=== PATIENT | female | born 1985 | race Caucasian/White ===

== ENCOUNTER 2023-10-31 23:02 | Observation (INO) ==
[2023-10-31 23:47] LABS: Hemoglobin 6.9 g/dl (12.0-16.0); Mean Corpuscular Hemoglobin 19.4 pg (25.0-34.0); Mean Corpuscular Hgb Conc 28.8 g/dL (32.0-36.0); Mean Corpuscular Volume 67.4 fL (80.0-100.0); Mean Platelet Volume 10.1 fL (9.4-12.4); Platelet Count 306 K/uL (130-400); RDW Standard Deviation 43.5 fL (36.4-46.3); Red Blood Count 3.56 M/uL (4.20-5.40); White Blood Count 8.15 K/ul (4.8-10.8)
[2023-10-31 23:52] LABS: Albumin Globulin Ratio 1.6 (0.9-2); Albumin Level 4.4 gm/dl (3.4-5.0); Bilirubin,Total 0.2 mg/dl (0.2-1.0); Calcium 8.7 mg/dl (8.6-10.3); Creatinine Clr Calc Pharmacy 140.9 ml/min; Est GFR (African American) 136.5 ml/min; Est GFR (Non-African American) 117.8 ml/min; Globulin 2.7 gm/dl (2.5-4.0); Potassium 3.7 mmol/L (3.5-5.1); Total Protein 7.1 gm/dl (6.0-8.3)
[2023-10-31 23:58] LABS: Troponin I High Sensitivity 3.2 pg/ml (0-14)
[2023-11-01 00:01] LABS: INR 0.9 (0.9-1.1); Partial Thromboplastin Ratio 0.7; Partial Thromboplastin Time 20 Seconds (21-31)
[2023-11-01 00:20] LABS: Basophils # (auto) 0.03 K/uL (0.00-0.20); Basophils % (auto) 0.4 %; Eosinophils % (auto) 1.2 %; Immature Granulocytes # (auto) 0.03 K/uL (0.01-0.20); Immature Granulocytes % (auto) 0.4 %; Lymphocytes # (auto) 3.04 K/uL (1.20-3.40); Lymphocytes % (auto) 37.3 %; Microcytosis Present; Monocytes # (auto) 0.83 K/uL (0.11-0.59); Monocytes % (auto) 10.2 %; Neutrophils # (auto) 4.12 K/uL (1.40-6.50); Neutrophils % (auto) 50.5 %; Polychromasia 1+; Tear Drop Cells 1+
[2023-11-01] MEDS ORDERED: SODIUM CHLORIDE 0.9% 250 ML IV PRN ×2 (00:42→01:17)
[2023-11-01 00:47] LABS: Pregnancy Test, Serum Negative (Negative)
[2023-11-01] MEDS: OPTIRAY 320 125ml IV ONE (01:31)
--- NOTE | 2023-11-01 02:11 | CT Scan Report ---
Exam(s): CTA CHEST IV Amt: 115 ML OPTIRAY 320 EXAM: CT Angiography Chest With Intravenous Contrast CLINICAL HISTORY: Reason for exam: chest pain, dyspnea, recent hormone use. TECHNIQUE: Axial computed tomographic angiography images of the chest with intravenous contrast. CTDI is 27.21 mGy and DLP is 771.99 mGy-cm. Automated exposure control was utilized for the study. A dose lowering technique was utilized adhering to the principles of ALARA. MIP reconstructed images were created and reviewed. COMPARISON: No relevant prior studies available. FINDINGS: LUNGS: No focal consolidation, pleural effusion, or pneumothorax. HEART: Within normal limits. VASCULATURE: No acute pulmonary embolism. THYROID: Within normal limits. MEDIASTINUM + LYMPH NODES: There are no pathologically enlarged mediastinal, hilar, or axillary lymph nodes. SUPERIOR ABDOMEN: The included portions of the superior abdomen are within normal limits. MUSCULOSKELETAL: Within normal limits. IMPRESSION: No acute pulmonary embolism. Electronically signed by: Irwin Red MD 11/01/23 02:11 AM
--- NOTE | 2023-11-01 02:21 | Emergency Department Note ---
Impression & Plan Atypical chest pain, Anemia, Vaginal hemorrhage, Symptomatic anemia, Rectal hemorrhage ED Provider Note CHIEF COMPLAINT: Chest pain HISTORY OF PRESENT ILLNESS: This 38-year-old female patient presents to the emergency department via private vehicle for evaluation of sudden onset of chest pain which started this evening. The patient states the pain took her breath away. She states it was diffuse throughout the entire chest. The patient notes that she has not had pain like this in the past. The patient notes that she was seeing [facility] for heavy vaginal bleeding after removal of her Mirena IUD. She states she was scheduled for a D&C, but after a consultation with her [facility] at [facility] in [place], she canceled this procedure, noting that she did not need the procedure per their recommendation. The patient states she was also scheduled to have a Mirena replaced, but canceled this as well, and is planning on having the Mirena replaced with her PCP instead of ultrasound-guided with [facility]. She states that she is planning on following up with [facility] as an outpatient, she follows with them for their high risk breast cancer center. She notes that for many years, she has been experiencing rectal bleeding associated with her menstrual periods. She states that since removal of the Mirena at the end of September, she has been having heavy vaginal bleeding as well as rectal bleeding. She states this is not necessarily abnormal for her when off of the hormone therapy, but did just complete an Aygestin taper. She states that she had "horrible side effects" to this medication. She states she stopped bleeding part way through, but after only 2 to 3 days of having no vaginal or rectal bleeding, the bleeding returned. She states that this time and over the weekend, she has been experiencing rectal bleeding. She denies any vaginal bleeding. She denies any abdominal pain, but does report a generalized cramping sensation. She states she has had nausea but no vomiting. She has been feeling increased fatigue and somewhat short of breath over the past several days. The patient is not currently scheduled for Mirena replacement at this time. She states the chest pain has been intermittent. It came on suddenly while at rest. It is nonexertional in nature. No history of bleeding or clotting disorders. REVIEW OF SYSTEMS: A 10 system review of systems was performed with positives and pertinent negatives listed in the history of present illness. All other systems were reviewed and are negative. ALLERGIES: Lactose, red dye PHYSICAL EXAM: VITALS: Vitals are noted on the nurse's note and reviewed by myself. Vital signs stable. GENERAL: This is a 38-year-old female, in no acute distress, nondiaphoretic, well-developed well-nourished. SKIN: The skin was without rashes, erythema, edema, or bruising. There is no tenting of the skin. Capillary refill less than 2 seconds. HEAD: Normocephalic atraumatic. EYES: Conjunctivae without injection, sclerae without icterus. NECK: Supple without nuchal rigidity. No lymphadenopathy. No JVD. HEART: Regular rate and rhythm without murmurs gallops or rubs. LUNGS: Clear to auscultation bilaterally without wheezes, rales or rhonchi. No retractions or accessory muscle use. ABDOMEN: Positive bowel sounds x 4. Soft, nontender, without masses or organomegaly. Jaimes sign negative. No guarding or rebound tenderness. MUSCULOSKELETAL: No muscle atrophy, erythema, or edema noted. Full range of motion without joint tenderness in all extremities. No tenderness to palpation. Normal gait. Strength 5/5 throughout. NEURO: Patient was alert and oriented to person place and time. No focal neurological deficits. An order was placed for continuous desk monitor. The monitor showed a normal sinus rhythm at a ventricular rate of 86 bpm, per my interpretation. EKG was reviewed by myself and found to be normal sinus rhythm at a rate of 92 beats per minute and per my interpretation reveals no ST elevation or depression. No T wave inversion. No prior EKG available for comparison. Imaging as interpreted by myself and the radiologist revealed no evidence of PE, with radiologist interpretation as above. I agree with the radiologist's findings as based upon my independent interpretation. Chest x-ray. Findings: A chest x-ray was performed and revealed no pneumothorax, effusion, infiltrate, pulmonary edema, free air under the diaphragm, or wide mediastinum, per my interpretation. EMERGENCY DEPARTMENT COURSE: The patient was seen and evaluated as above. The patient presents for evaluation of sudden onset of chest pain which took her breath away earlier this evening. She is currently experiencing heavy vaginal and rectal bleeding associated with discontinuation of her Mirena IUD last month. She recently completed a norethindrone taper. Given the patient's complaint, the above-mentioned workup was completed. IV access was obtained, labs were drawn. Per my interpretation, there was concern for an anemia with a hemoglobin of 6.9 this is down from hemoglobin on 10/06/2023 which was 9.3. There is no leukocytosis. No thrombocytopenia. Renal, hepatic function and electrolytes without significant abnormality. hCG negative. Chest x-ray was completed and negative, per my interpretation I discussed the case and workup completed with my attending physician. We did agree on treatment plan to include blood transfusion, CT angiogram of the chest to rule out PE, as well as admission for further evaluation of the patient's symptoms. I discussed the workup and recommendation with the patient at bedside. The patient is hesitant to stay. She is concerned that this is not an academic center and generally prefers her care to be given at larger, academic centers. She is debating leaving [facility] and driving to [facility] for further management of her symptoms. She is declining blood transfusion or CTA at this time. She would like to speak with Dr. Vaughan first. The patient did speak with Dr. Vaughan. The patient ultimately did elect to stay in the hospital for further management of her acute anemia and hemorrhage. CT angiogram was completed and reviewed by myself and radiologist as noted. No PE. The patient did agree to blood transfusion. She was typed and crossed and 1 unit of blood was administered. I discussed the case with Dr. Church as well as Dr. Bravo, [facility] hospitalist physician. They did agree to see and evaluate the patient for admission. Please see hospitalist dictation regarding ongoing management care of this patient. This visit is during a period of high volume and high acuity in the emergency department. I attest that I have personally reviewed the patient medication list. I attest that I have reviewed the patient's blood pressure and it was found to be elevated. Further management by hospitalist. GCS: 15 In the evaluation and treatment of this patient the following differential diagnoses were entertained: Cardiac ischemia, aortic dissection, pulmonary embolism, pneumothorax, pneumonia, pericarditis, myocarditis, esophageal rupture, GERD, cholecystitis, pancreatitis, musculoskeletal, as well as other pathologies. The chart was completed utilizing [employer] voice recognition software. Grammatical errors, random word insertions, pronoun errors, and incomplete sentences are an occasional consequence of this system due to software limitations, ambient noise, and hardware issues. Any formal questions or concerns about the content, text, or information contained within the body of this dictation should be directly addressed to the provider for clarification. Past Med/Surg History Problem List (Updated 11/01/23 @ 03:58 by Manju Strauss PA-C) Atypical chest pain (Acute) Symptomatic anemia (Acute) Vaginal hemorrhage (Acute) Rectal hemorrhage (Acute) Heavy menses Asthma Encounter for screening and preventative care Anemia (Acute) Medical History delivery delivered X2 Hemorrhoids GDM (gestational diabetes mellitus) Surgical History (Updated 01/05/23 @ 15:47 by Orin Ely LPN) [employer] teeth extracted Family History (Updated 01/05/23 @ 16:47 by Orin Ely LPN) Mother Anxiety Heart disease Hypertension Father Anxiety Heart disease Hypertension Grandmother (Maternal) Alcohol abuse Colon cancer Ovarian cancer Aunt Breast cancer Social History Smoking Status: Never smoker Second Hand Exposure: No; Do You Dip or Chew Tobacco: No; Hx Alcohol Use: Yes Alcohol type: wine Alcohol Intake Frequency: Monthly or Less Hx Substance Use: No Preferred Language: Uzbek Communication Ability: Effective Visual Impairment: Limited Hearing Ability: Normal 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 Feels Safe at Home: Yes Childhood Exposure to Second-Hand Smoke: No Diet: lactose free and regular caffeine: Yes during the past year weight has: remained stable Dental Care, Regularly: Yes Physical Activity Frequency: 1-2 Times per Week Seatbelt Use: always Sunscreen Use: Yes Assistive Devices: Glasses Allergies Allergies Allergy/AdvReac Type Severity Reaction Status Date / Time lactose Allergy Mild Diarrhea Verified 10/06/23 10:18 Red Dye Allergy Severe throat Uncoded 10/06/23 10:18 swelling Home Meds Home Medications Medication Instructions Recorded Confirmed fluticasone propionate 50 2 spray intranasal DAILY 01/05/23 11/01/23 mcg/actuation nasal spray,suspension (Flonase Allergy Relief) Bifidobacterium infantis 10.5 mg 10 mg PO DAILY 11/01/23 11/01/23 (10 million cell) chewable tablet (Align) cholecalciferol (vitamin D3) 50 50 mcg PO DAILY 11/01/23 11/01/23 mcg (2,000 unit) capsule Previous Rx's Medication Instructions Recorded epinephrine 0.3 mg/0.3 mL 0.3 mg (0.3 mL) IM Q4H PRN 04/21/23 injection, auto-injector (Auvi-Q) anaphylaxis #2 ea fluticasone propionate 220 2 puff inhalation BID #12 grams 04/29/23 mcg/actuation HFA aerosol inhaler Results & Data (ED) Vital Signs Vital Signs - 24 hr 10/31/23 23:04 10/31/23 23:55 10/31/23 23:56 Temperature 36.6 C Temperature Source Temporal Artery Scan Pulse Rate 109 H 101 H Pulse Rate [Finger] Pulse Rate from SpO2 Sensor Pulse Rhythm Pulse Strength Respiratory Rate 20 Respiratory Effort / Characteristics Non-Labored Spontaneous Respiratory Depth Normal Respiratory Pattern Regular Blood Pressure 164/87 H 146/99 H Blood Pressure [Right Arm] Blood Pressure Mean 112 111 Blood Pressure Mean [Right Arm] Blood Pressure Position Sitting Pulse Oximetry 100 Oxygen Delivery Method Room Air Oxygen Flow Rate Sepsis Recent Fever Within 48 Hours No Sepsis New/Unexplained Change in Mental Status No Sepsis Action Taken by Nursing No Action Required 10/31/23 23:56 11/01/23 00:00 11/01/23 00:10 Temperature Temperature Source Pulse Rate 96 H 94 H 93 H Pulse Rate [Finger] Pulse Rate from SpO2 Sensor 94 H 92 H 92 H Pulse Rhythm Pulse Strength Respiratory Rate 26 H 20 8 L Respiratory Effort / Characteristics Respiratory Depth Respiratory Pattern Blood Pressure 121/85 Blood Pressure [Right Arm] Blood Pressure Mean 97 Blood Pressure Mean [Right Arm] Blood Pressure Position Pulse Oximetry 100 100 100 Oxygen Delivery Method Room Air Oxygen Flow Rate Sepsis Recent Fever Within 48 Hours Sepsis New/Unexplained Change in Mental Status Sepsis Action Taken by Nursing 11/01/23 00:20 11/01/23 00:30 11/01/23 00:40 Temperature Temperature Source Pulse Rate 92 H 99 H 98 H Pulse Rate [Finger] Pulse Rate from SpO2 Sensor 93 H 101 H 98 H Pulse Rhythm Pulse Strength Respiratory Rate 23 20 22 Respiratory Effort / Characteristics Respiratory Depth Respiratory Pattern Blood Pressure 136/92 Blood Pressure [Right Arm] Blood Pressure Mean 106 Blood Pressure Mean [Right Arm] Blood Pressure Position Pulse Oximetry 100 100 100 Oxygen Delivery Method Room Air Oxygen Flow Rate Sepsis Recent Fever Within 48 Hours Sepsis New/Unexplained Change in Mental Status Sepsis Action Taken by Nursing 11/01/23 00:42 11/01/23 00:50 11/01/23 01:00 Temperature Temperature Source Pulse Rate 142 H 106 H Pulse Rate [Finger] Pulse Rate from SpO2 Sensor 142 H 104 H Pulse Rhythm Pulse Strength Respiratory Rate 20 23 Respiratory Effort / Characteristics Respiratory Depth Respiratory Pattern Blood Pressure 127/78 Blood Pressure [Right Arm] Blood Pressure Mean 94 Blood Pressure Mean [Right Arm] Blood Pressure Position Pulse Oximetry 100 100 100 Oxygen Delivery Method Room Air Room Air Oxygen Flow Rate Sepsis Recent Fever Within 48 Hours Sepsis New/Unexplained Change in Mental Status Sepsis Action Taken by Nursing 11/01/23 01:10 11/01/23 01:20 11/01/23 01:40 Temperature Temperature Source Pulse Rate 96 H 91 H 95 H Pulse Rate [Finger] Pulse Rate from SpO2 Sensor 97 H 91 H 95 H Pulse Rhythm Pulse Strength Respiratory Rate 20 19 30 H Respiratory Effort / Characteristics Respiratory Depth Respiratory Pattern Blood Pressure Blood Pressure [Right Arm] Blood Pressure Mean Blood Pressure Mean [Right Arm] Blood Pressure Position Pulse Oximetry 100 100 100 Oxygen Delivery Method Oxygen Flow Rate Sepsis Recent Fever Within 48 Hours Sepsis New/Unexplained Change in Mental Status Sepsis Action Taken by Nursing 11/01/23 01:50 11/01/23 02:00 11/01/23 02:00 Temperature Temperature Source Pulse Rate 86 Pulse Rate [Finger] Pulse Rate from SpO2 Sensor 102 H 89 Pulse Rhythm Pulse Strength Respiratory Rate 16 Respiratory Effort / Characteristics Respiratory Depth Respiratory Pattern Blood Pressure 113/78 113/78 Blood Pressure [Right Arm] Blood Pressure Mean 89 93 Blood Pressure Mean [Right Arm] Blood Pressure Position Pulse Oximetry 100 100 Oxygen Delivery Method Room Air Oxygen Flow Rate Sepsis Recent Fever Within 48 Hours Sepsis New/Unexplained Change in Mental Status Sepsis Action Taken by Nursing 11/01/23 02:30 11/01/23 03:00 11/01/23 03:36 Temperature 36.6 C Temperature Source Temporal Artery Scan Pulse Rate 77 97 H Pulse Rate [Finger] 96 H Pulse Rate from SpO2 Sensor 77 Pulse Rhythm Regular Pulse Strength Normal Respiratory Rate 26 H 18 20 Respiratory Effort / Characteristics Non-Labored Respiratory Depth Normal Respiratory Pattern Blood Pressure 112/78 149/101 H Blood Pressure [Right Arm] 138/99 Blood Pressure Mean 89 117 Blood Pressure Mean [Right Arm] 112 Blood Pressure Position Sitting Pulse Oximetry 99 100 100 Oxygen Delivery Method Room Air Room Air Oxygen Flow Rate 0 Sepsis Recent Fever Within 48 Hours Sepsis New/Unexplained Change in Mental Status Sepsis Action Taken by Nursing Laboratory Data 10/31/23 23:20 10/31/23 23:20 Lab Results 10/31/23 11/01/23 11/01/23 Range/Units 23:20 01:37 02:33 WBC 8.15 (4.8-10.8) K/ul RBC 3.56 L (4.20-5.40) M/uL Hgb 6.9 L* (12.0-16.0) g/dl Hct 24.0 L (37.0-47.0) % MCV 67.4 L (80.0-100.0) fL MCH 19.4 L (25.0-34.0) pg MCHC 28.8 L (32.0-36.0) g/dL RDW Std Deviation 43.5 (36.4-46.3) fL RDW Coeff of David 18.0 H (11.5-14.5) % Plt Count 306 (130-400) K/uL MPV 10.1 (9.4-12.4) fL Immature Gran % (Auto) 0.4 % Neut % (Auto) 50.5 % Lymph % (Auto) 37.3 % [place] % (Auto) 10.2 % Eos % (Auto) 1.2 % Baso % (Auto) 0.4 % Neut # (Auto) 4.12 (1.40-6.50) K/uL Lymph # (Auto) 3.04 (1.20-3.40) K/uL [place] # (Auto) 0.83 H (0.11-0.59) K/uL Eos # (Auto) 0.10 (0.00-0.50) K/uL Baso # (Auto) 0.03 (0.00-0.20) K/uL Immature Gran # (Auto) 0.03 (0.01-0.20) K/uL Polychromasia 1+ Microcytosis Present Tear Drop Cells 1+ PT 10.0 (9.0-12.0) Seconds INR 0.9 (0.9-1.1) APTT 20 L (21-31) Seconds PTT Ratio 0.7 Sodium 137 (136-145) mmol/L Potassium 3.7 (3.5-5.1) mmol/L Chloride 106 (98-107) mmol/L Carbon Dioxide 23 (21-32) mmol/L Anion Gap 8 (3-11) BUN 18 (6-23) mg/dl Creatinine 0.58 L (0.6-1.2) mg/dl Est Cr Clr Drug Dosing 140.9 ml/min Est GFR ( Amer) 136.5 ml/min Est GFR (Non-Af Amer) 117.8 ml/min BUN/Creatinine Ratio 31.0 H (10-20) Glucose 114 H (70-99(Fasting)) mg/dl Calcium 8.7 (8.6-10.3) mg/dl Total Bilirubin 0.2 (0.2-1.0) mg/dl AST 15 (13-39) U/L ALT 16 (7-52) U/L Alkaline Phosphatase 55 (34-104) U/L Troponin I High Sens 3.2 (0-14) pg/ml Total Protein 7.1 (6.0-8.3) gm/dl Albumin 4.4 (3.4-5.0) gm/dl Globulin 2.7 (2.5-4.0) gm/dl Albumin/Globulin Ratio 1.6 (0.9-2) HCG, Qual Negative (Negative) Blood Type A Positive Blood Type Recheck A Positive Antibody Screen NEGATIVE Crossmatch See Detail Administered Medications Discontinued Medications Ioversol (Optiray 320 125ml) 125 ml IV ONCE ONE Stop: 11/01/23 01:31 Last Admin: 11/01/23 01:31 Dose: 115 ml Documented By: [facility] Imaging Data Radiologist's Impression: Chest CTA 11/01/23 00:42 Exam(s): CTA CHEST IV Amt: 115 ML OPTIRAY 320 EXAM: CT Angiography Chest With Intravenous Contrast CLINICAL HISTORY: Reason for exam: chest pain, dyspnea, recent hormone use. TECHNIQUE: Axial computed tomographic angiography images of the chest with intravenous contrast. CTDI is 27.21 mGy and DLP is 771.99 mGy-cm. Automated exposure control was utilized for the study. A dose lowering technique was utilized adhering to the principles of ALARA. MIP reconstructed images were created and reviewed. COMPARISON: No relevant prior studies available. FINDINGS: LUNGS: No focal consolidation, pleural effusion, or pneumothorax. HEART: Within normal limits. VASCULATURE: No acute pulmonary embolism. THYROID: Within normal limits. MEDIASTINUM + LYMPH NODES: There are no pathologically enlarged mediastinal, hilar, or axillary lymph nodes. SUPERIOR ABDOMEN: The included portions of the superior abdomen are within normal limits. MUSCULOSKELETAL: Within normal limits. IMPRESSION: No acute pulmonary embolism. Electronically signed by: Irwin Red MD 11/01/23 02:11 AM Discharge Plan Visit Data Chief Complaint: Chest Pain Stated Complaint: CHEST PAIN ED Provider: Suellen Vaughan ED Midlevel Provider: Manju Strauss Discharge Problem: Atypical chest pain, Anemia, Vaginal hemorrhage, Symptomatic anemia, Rectal hemorrhage Patient Disposition: Admitted As Inpatient Forms Stand Alone Forms: [facility] Prescriptions Prescriptions: No Action epinephrine [Auvi-Q] 0.3 mg/0.3 mL auto-injector 0.3 mg IM Q4H PRN (Reason: anaphylaxis) Qty: 2 0RF fluticasone propionate 220 mcg/actuation HFA aerosol inhaler 2 puff inhalation BID Qty: 12 0RF fluticasone propionate [Flonase Allergy Relief] 50 mcg/actuation spray,suspension 2 spray intranasal DAILY Rx Instructions: administer into each nostril cholecalciferol (vitamin D3) 50 mcg (2,000 unit) capsule 50 mcg PO DAILY Align 10.5 mg (10 million cell) Tablet,Chewable 10 mg PO DAILY Referrals Referrals: Lisette Mann DO [Primary Care Provider] -
--- NOTE | 2023-11-01 02:49 | History & Physical Report ---
"Date of Service November 01, 2023 Assessment & Plan (1) Rectal hemorrhage: (2) Vaginal hemorrhage: (3) Symptomatic anemia: (4) Heavy menses: (5) Asthma: (6) Anemia: Plan Keren is a 38F (CS x 2) w/ PMH heavy menses and asthma who presents for concern of chest tightness this past evening. Symptomatic Anemia (Hgb 6.9) - Patient presenting with chest tightening and dyspnea - EKG w/ NSR w/o ST or T wave changes - Patient with intermittent tachycardia, otherwise hemodynamically stable - 1 unit PRBC ordered in ED, 2 more units ordered on hold - Trend H&H q4h - Peripheral smear ordered Vaginal Hemorrhage | Hx of Heavy Menses - Longstanding history of heavy vaginal bleeding, s/p 2 C/s (last delivery 7 years ago) No endometriosis noted on exploration during C/s - No known personal or FH of bleeding disorders - Patient notes she has been bleeding free for 7 years w/ Mirena Scheduled for replacement w/ PCP (Dr. 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 [facility] Requesting not to see [facility] Plans to transition care to [facility] - Unable to perform Von Willebrand testing as patient has received blood Would recommend testing w/ PCP as outpatient GI Bleeding | Rectal Hemorrhage - Longstanding history of rectal bleeding, now acutely worsened over weekend Patient previously following w/ colorectal surgery, upcoming appointment in 2 weeks Prior colonoscopies negative Prior EGDs with esophagitis and gastritis - Now with epigastric pain on exam in setting of ongoing GI bleeding, concern exists for UGIB Patient notes taking Ibuprofen yesterday, hold further NSAIDS - GI consultation ordered, appreciate recommendations - IV Protonix 40 mg BID started, patient declined addition of Carafate and Pepc id - CTAP ordered given severity of bleeding and TTP on examination - Continue NPO pending GI evaluation Chronic Conditions - Asthma: no home medical management - Anxiety: no home medical management FEN: NPO Code status: Full Code DVT ppx: None, active GI/ bleeding Isolation: None Dispo:Med/Surg w/ Tele History of Present Illness Primary Care Provider: Lisette BairdmayoDO Keren zendejas is a 38F (CS x 2) w/ PMH heavy menses and asthma who presents for concern of chest tightness this past evening. She notes that she has been feeling unwell since 09/20/23 when her Mirena IUD was removed. She has a longstanding history of rectal and vaginal hemorrhaging, but has had an IUD placed for the last 7 years. Upon removal, she began to experience cramping, nausea, lightheadedness, and profound vaginal bleeding with frequent golf ball size clots. She was seen 10/06/23 and her hemoglobin level was noted to be 9.3. Transvaginal US was performed and clots within the uterus were found. D&C was recommended, but patient contacted her OB specialist at [facility] who recommended against the D&C and said the clots would self resolve over time. Patient was placed on Norethindrone taper by [facility]PER[facility], but when she completed the taper Monday, she began having abdominal cramping, nausea, and diarrhea again. Patient notes that over the weekend she experienced rectal bleeding so significant that she was having liquid bowel movements every 30 minutes. She has a history of hemorrhoids related to , but states that this bleeding is much different than past bleeding hemorrhoids. Patient notes that she previously followed with colorectal surgery when she was having rectal bleeding during , she has an appointment scheduled with them in 2 weeks. She notes her last colonoscopy and EGD were 7 years ago with her last . She had two uncomplicated deliveries and notes that her delivering physician explored her abdomen during the and was not able to find any evidence of endometriosis. Patient believes that she has rectal endometriosis, but this has not been confirmed on colonoscopy. Patient notes that she has a history of gastritis and esophagitis noted on EGD, but that she has not struggled with it recently. She did note that when her chest discomfort started this evening, she took some TUMS. She is currently not experiencing chest pain or dyspnea. She denies recent fevers or chills. She denies any recent urinary changes. Patient is scheduled for IUD placement with her PCP. Allergies Allergy/AdvReac Type Severity Reaction Status Date / Time lactose Allergy Mild Diarrhea Verified 10/06/23 10:18 Red Dye Allergy Severe throat Uncoded 10/06/23 10:18 swelling Home Medications Medication Instructions Recorded Confirmed Type fluticasone propionate 50 2 spray intranasal DAILY 01/05/23 11/01/23 History mcg/actuation nasal spray,suspension (Flonase Allergy Relief) epinephrine 0.3 mg/0.3 mL 0.3 mg (0.3 mL) IM Q4H PRN 04/21/23 11/01/23 Rx injection, auto-injector (Auvi-Q) anaphylaxis #2 ea fluticasone propionate 220 2 puff inhalation BID #12 grams 04/29/23 11/01/23 Rx mcg/actuation HFA aerosol inhaler Bifidobacterium infantis 10.5 mg 10 mg PO DAILY 11/01/23 11/01/23 History (10 million cell) chewable tablet (Align) cholecalciferol (vitamin D3) 50 50 mcg PO DAILY 11/01/23 11/01/23 History mcg (2,000 unit) capsule Past Med/Surg History Problem List (Updated 11/01/23 @ 03:58 by Manju Strauss PA-C) Atypical chest pain (Acute) Symptomatic anemia (Acute) Vaginal hemorrhage (Acute) Rectal hemorrhage (Acute) Heavy menses Asthma Encounter for screening and preventative care Anemia (Acute) Medical History delivery delivered X2 Hemorrhoids GDM (gestational diabetes mellitus) Surgical History (Updated 01/05/23 @ 15:47 by Orin Ely LPN) [place] teeth extracted Family History (Updated 01/05/23 @ 16:47 by Orin Ely LPN) Mother Anxiety Heart disease Hypertension Father Anxiety Heart disease Hypertension Grandmother (Maternal) Alcohol abuse Colon cancer Ovarian cancer Aunt Breast cancer Social History Smoking Status: Never smoker Second Hand Exposure: No; Do You Dip or Chew Tobacco: No; Hx Alcohol Use: No Hx Substance Use: No Preferred Language: Persian Communication Ability: Effective Visual Impairment: Limited Hearing Ability: Normal Real Estate Services Coordinator Required: No Beliefs That Will Affect Care: None marital status: Current Living Situation: Spouse and Family current occupational status: employed 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 Other Information That Helps Us Care for You: No Feels Safe at Home: Yes Safety Concerns: Feels Safe At This Time Childhood Exposure to Second-Hand Smoke: No Diet: lactose free and regular caffeine: Yes during the past year weight has: remained stable Dental Care, Regularly: Yes Physical Activity Frequency: 1-2 Times per Week Seatbelt Use: always Sunscreen Use: Yes Assistive Devices: Glasses Physical Exam Physical Exam: Gen: NAD, alert, interactive, facial pallor HEENT: Supple, no LAD, no thyromegaly, no JVD Resp:Non-labored, no wheezing/rhonchi/rales, CTAB CV: tachycardic, regular rhythm, normal S1/S2, no M/R/G Abd: Soft, non-distended, epigastric TTP, normoactive bowels, no masses Extr: 2+ dp bilaterally, no edema Skin: No rashes lesions or erythema Results & Data Results & Data Vital Signs (Past 12 Hours) Vital Signs Temp Pulse Resp BP Pulse Ox O2 Del Method 11/01/23 02:00 86 16 113/78 100 Room Air 11/01/23 01:50 100 11/01/23 01:40 95 H 30 H 100 11/01/23 01:20 91 H 19 100 11/01/23 01:10 96 H 20 100 11/01/23 01:00 106 H 23 127/78 100 Room Air 11/01/23 00:50 142 H 20 100 11/01/23 00:42 100 Room Air 11/01/23 00:40 98 H 22 100 11/01/23 00:30 99 H 20 136/92 100 Room Air 11/01/23 00:20 92 H 23 100 11/01/23 00:10 93 H 8 L 100 11/01/23 00:00 94 H 20 121/85 100 Room Air 10/31/23 23:56 96 H 26 H 100 10/31/23 23:56 101 H 10/31/23 23:55 146/99 H 10/31/23 23:04 36.6 C 109 H 20 164/87 H 100 Room Air Supervising Physician Co-Signing Physician Notes Attending addendum: I have physically seen this patient, have supervised the medical residents activities, and agree with the H&P unless as otherwise noted. Assessment and Plan: Symptomatic anemia hemoglobin 6.9 on admission- 1 unit PRBCs ordered from the ED H&H's every 4 hours Mildly tachycardic, but blood pressure maintained Admit to PCU Due to combination of vaginal and GI bleeding Vaginal hemorrhaging/history of heavy menses- Longstanding history of bleeding vaginally as noted Has followed with SPRAY MACHINE OPERATOR Has been controlled when on Mirena, which is scheduled to be replaced see PCP Bleeding has returned after norethindrone taper completed as outpatient Bright red blood per rectum- Has had a longstanding history of rectal bleeding as well Has had multiple colonoscopies in the past Recent use of Motrin 1 day ago Prior EGDs with esophagitis and gastritis Placing on Protonix IV twice daily as noted Ordered CT scan of abdomen and pelvis NPO until seen by gastroenterology Remaining orders and notations as noted Resident Activity Tracking Resident Involvement: Resident Care Provided Care Provided: Adult Hospital Medicine (Night)"
[2023-11-01] MEDS ORDERED: ONDANSETRON INJ 2 MG/ML 2 ML VIAL IV PRN (05:31)
--- NOTE | 2023-11-01 06:45 | CT Scan Report ---
CT OF THE ABDOMEN AND PELVIS WITHOUT CONTRAST CLINICAL HISTORY: Abdominal Pain, GI/ bleeding COMPARISON STUDY: Pelvic ultrasound October 06, 2023. TECHNIQUE: Axial images of the abdomen and pelvis were obtained without IV contrast. Images were revi ewed in the axial, sagittal, and coronal planes. Automated exposure control was utilized for the sowmya dy. A dose lowering technique was utilized adhering to the principles of ALARA. FINDINGS: No pneumatosis, free air or portal venous gas is present. Sensitivity for detection of urin rene calculi is diminished given excreted contrast from recent contrast-enhanced CT. No pelvicalyceal or ureteral filling defects are present. No lesion within the bladder is identified by CT. A 1 cm low -attenuation left renal lesion is suboptimally assessed on this unenhanced exam but favors a cyst. Th e liver, spleen, adrenal glands and pancreas are unremarkable on unenhanced exam. There is no biliary or pancreatic ductal dilatation. There is no evidence for a bowel obstruction. Caliber and wall thic kness of small and large bowel are unremarkable on unenhanced exam. There is no lymphadenopathy. Sens itivity for bowel mucosal lesions is diminished given CT technique but none are identified. There are a few colonic diverticula without evidence for acute diverticulitis. There is no lymphadenopathy. IMPRESSION: 1. No bowel obstruction. Normal appendix. No bowel wall thickening on unenhanced exam. 2. No hydronephrosis or hydroureter. ACT 112: Negative or not required by law. Electronically signed by: Abiodun Preciado M.D. 11/01/2023 6:43 AM
[2023-11-01 07:13] LABS: Hematocrit (blood only) 26.6 % (37.0-47.0); Hemoglobin 7.8 g/dl (12.0-16.0)
--- NOTE | 2023-11-01 07:38 | XRay Report ---
XR chest 1V not portable CLINICAL HISTORY: Chest pain, nonspecific COMPARISON STUDY: No previous studies for comparison. FINDINGS: Lung volumes are normal. Lungs are clear. There is no pneumothorax or pleural effusion. Car diac size is normal. Mediastinal contours are normal. There is no evidence for pulmonary edema. IMPRESSION: No acute cardiopulmonary findings. ACT 112: Negative or not required by law. Electronically signed by: Abiodun Preciado M.D. 11/01/2023 7:37 AM
--- NOTE | 2023-11-01 07:54 | Discharge Summary ---
"Date of Service November 01, 2023 Admission HPI Per Admitting Provider Keren is a 38F (CS x 2) w/ PMH heavy menses and asthma who presents for concern of chest tightness this past evening. She notes that she has been feeling unwell since 09/20/23 when her Mirena IUD was removed. She has a longstanding history of rectal and vaginal hemorrhaging, but has had an IUD placed for the last 7 years. Upon removal, she began to experience cramping, nausea, lightheadedness, and profound vaginal bleeding with frequent golf ball size clots. She was seen 10/06/23 and her hemoglobin level was noted to be 9.3. Transvaginal US was performed and clots within the uterus were found. D&C was recommended, but patient contacted her OB specialist at [facility] who recommended against the D&C and said the clots would self resolve over time. Patient was placed on Norethindrone taper by [facility], but when she completed the taper Monday, she began having abdominal cramping, nausea, and diarrhea again. Patient notes that over the weekend she experienced rectal bleeding so significant that she was having liquid bowel movements every 30 minutes. She has a history of hemorrhoids related to , but states that this bleeding is much different than past bleeding hemorrhoids. Patient notes that she previously followed with colorectal surgery when she was having rectal bleeding during , she has an appointment scheduled with them in 2 weeks. She notes her last colonoscopy and EGD were 7 years ago with her last . She had two uncomplicated deliveries and notes that her delivering physician explored her abdomen during the and was not able to find any evidence of endometriosis. Patient believes that she has rectal endometriosis, but this has not been confirmed on colonoscopy. Patient notes that she has a history of gastritis and esophagitis noted on EGD, but that she has not struggled with it recently. She did note that when her chest discomfort started this evening, she took some TUMS. She is currently not experiencing chest pain or dyspnea. She denies recent fevers or chills. She denies any recent urinary changes. Patient is scheduled for IUD placement with her PCP. Principal Diagnosis Anemia Discharge Exam Constitutional: well-appearing, no acute distress HEENT: NCAT, no conjunctival injection CV: well-perfused Resp:no increased work of breathing MSK: no gross deformities appreciated Skin: warm, dry, no rash appreciated Neuro: alert, oriented, no focal neurologic deficit appreciated Discharge Data Allergies Allergy/AdvReac Type Severity Reaction Status Date / Time lactose Allergy Mild Diarrhea Verified 10/06/23 10:18 Red Dye Allergy Severe throat Uncoded 10/06/23 10:18 swelling Consultations 11/01/23 02:39 ED Decision to Admit Stat Ordered Studies 11/01/23 00:42 CT angio chest PE protocol Stat 11/01/23 03:32 CT Abdomen and Pelvis [CT abd pelvis wo con] Stat Hospital Course (1) Rectal hemorrhage: (2) Vaginal hemorrhage: (3) Symptomatic anemia: (4) Heavy menses: (5) Asthma: (6) Anemia: Plan Keren is a 38F (CS x 2) w/ PMH heavy menses and asthma who presents for concern of chest tightness this past evening. Symptomatic Anemia (Hgb 6.9) - Patient presenting with chest tightening and dyspnea; resolved prior to d/c - EKG w/ NSR w/o ST or T wave changes - Patient with intermittent tachycardia, otherwise hemodynamically stable - received 1 unit PRBC with f/u H/H 7.8 - Peripheral smear with microcytic hypochromic anemia - pt request d/c morning of 10/31- should have f/u H/H with PCP this week Vaginal Hemorrhage | Hx of Heavy Menses - Longstanding history of heavy vaginal bleeding, s/p 2 C/s (last delivery 7 years ago) No endometriosis noted on exploration during C/s - No known personal or FH of bleeding disorders - Patient notes she has been bleeding free for 7 years w/ Mirena Scheduled for replacement w/ PCP (Dr. Andre @ [facility]) S/p Norethindrone taper as outpatient, sx returned when completed Suspect that return to progesterone therapy w/ IUD will resolve patient's symptoms No acute need for IV Estrogen or TXA - Patient w/ STRIPPER COLOR specialist at [facility] Genevieve Jeffrey Requesting not to see [facility] Plans to transition care to [facility] - Unable to perform Von Willebrand testing as patient has received blood Would recommend testing w/ PCP as outpatient - Denies acute vaginal bleeding while admitted GI Bleeding | Rectal Hemorrhage - Longstanding history of rectal bleeding, now acutely worsened over weekend Patient previously following w/ colorectal surgery, upcoming appointment in 2 weeks Prior colonoscopies negative Prior EGDs with esophagitis and gastritis - Now with epigastric pain on exam in setting of ongoing GI bleeding, concern exists for UGIB Patient notes taking Ibuprofen yesterday, hold further NSAIDS - CTAP without acute pathology - GI consulted, but left prior to being seen. Will f/u with OP GI next week Total Time Total Time Spent Total Time Spent (In Minutes): see attending attestation Discharge Plan Discharge Items Patient Disposition: Home - Self-Care Reason For Visit: SYMPTOMATIC ANEMIA, GI / BLEEDING Discharge Diagnosis: Anemia Activity: Per Instructions section Non-emergency contact: Primary Care Provider Call non-emergency contact if: you have any medication questions and your symptoms worsen Follow-up/Referrals: Lisette Mann, [Primary Care Provider] - Diet: Regular Addtl Attending Provider Instructions: You were admitted with anemia. Your blood count was low, so we gave you a unit of packed red blood cells. We would like you to follow up with your primary care provider to discuss iron supplementation and getting your Mirena reinserted. You should also follow up with your colorectal doctor to discuss the ongoing GI bleeding. If you bleeding continues and symptoms worsen you should call your PCP/come back to the ED. Pending Studies at Discharge: No Stand-Alone Forms: My [facility] [employer], Smoking Cessation Medications and DC Order Prescriptions: Continued epinephrine [Auvi-Q] 0.3 mg/0.3 mL auto-injector 0.3 mg IM Q4H PRN (Reason: anaphylaxis) Qty: 2 0RF fluticasone propionate 220 mcg/actuation HFA aerosol inhaler 2 puff inhalation BID Qty: 12 0RF fluticasone propionate [Flonase Allergy Relief] 50 mcg/actuation spray,suspension 2 spray intranasal DAILY Rx Instructions: administer into each nostril cholecalciferol (vitamin D3) 50 mcg (2,000 unit) capsule 50 mcg PO DAILY Align 10.5 mg (10 million cell) Tablet,Chewable 10 mg PO DAILY Discharge Orders: Discharge Order (Routine); Ordered 11/01/23 Ordered By: Ines Werner Admission Data Admit Date/Time: 11/01/23 03:19 Attending Provider: Imani Galan Admit Provider: Osman Bravo Primary Care Provider: Lisette Mann Other Providers: Luis Church Other Interventions: Discharge Summary Assessment (RN) Last Done: 11/01/23 07:47 Supervising Physician Co-Signing Physician Notes Attending Physician Supervision Note: I independently interviewed and examined the patient and verified the hernandes history and physical, reviewed labs and image studies and agree with findings and care plan noted above. Symptomatic anemia due to menorrhagia after removal of Mirena and hemorrhoidal bleeding -transfused 1 unit prbc. hb improved to 7.8. -no vaginal bleeding currently. -has had diarrhea leading to aggravation of hemorrhoid and leading to hemorrhoidal bleeding. -has appointment with colorectal surgery for definitive management -is in process of getting Mirena placed back again for menorrhagia through pcp. stable for discharge."
--- NOTE | 2023-11-01 08:19 | Electrocardiogram Report ---
Test Reason : Blood Pressure : / mmHG Vent. Rate : 092 BPM Atrial Rate : 092 BPM P-R Int : 122 ms QRS Dur : 072 ms QT Int : 352 ms P-R-T Axes : 046 031 036 degrees QTc Int : 435 ms Normal sinus rhythm Normal ECG No previous ECGs available Confirmed by Nathan Clemens ([id number]) on 11/01/2023 8:18:40 AM Referred By: REFERRED SELF Confirmed By:Nathan Clemens
[2023-11-01] MEDS ORDERED: PANTOprazole 40 MG in SYRINGE 0 ML IV SCH (09:00)
--- OUTSIDE RECORDS SUMMARY | 2023-11-01 15:05 | External Medical Summary | Continuity of Care Document ---
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 Role Phone Ebony Werner Yadiel Primary Care Physician [phone] [id number] Date(s): 10/20/23 - 10/20/[address] [place] [id number] [facility], [address] [place] [address] [phone] Encounter Diagnosis Bronchitis(Discharge Diagnosis) - 10/20/23 Menorrhagia(Discharge Diagnosis) - 10/20/23 Discharge Disposition: Home or Self Care Attending Physician: Thai Forbes DO, Mariana Annette Allergies, Adverse Reactions, Alerts Substance Criticality Severity Reaction Reaction Severity Status red dye throat swelling Acti ve Assessment and Plan Extracted from: Title:Office Visit Note Author:Thai Forbes DO, Mariana Annette Date:10/20/23 1.Bronchitis Acute will treat with prednisone 20mg for 5 days continue supportive care if not improved early next week may consider abx atthat time 2.Menorrhagia Advised to provide us with her specialty pharmacy and we can order device for insertion Immunizations Given and Recorded Vaccine Date Status Refusal Reason SARS-CoV-2 (COVID-19) mRNA-vacc - [id number] 03/11/23 Recorded SARS-CoV-2 mRNA (Pfizer 12+) bivalent 07/22/22 Rec orded SARS-CoV-2 (COVID-19) mRNA BNT-162b2 vax 05/06/21 Recorded SARS-CoV-2 (COVID-19) mRNA BNT-162b2 vax 07/30/20 Recorded SARS-CoV-2 (COVID-19) mRNA BNT-162b2 vax 07/09/20 Recorded tetanus/diphtheria/pertuss, acel (Tdap) 04/20/12 R ecorded influenza virus vaccine, H1N1 04/18/09 Recorded Medications EpiPen 2-Darek Start: 10/11/23 2:40:00 PM EDT Start Date: 10/11/23 Status: Ordered Flonase Start: 10/11/23 2:40:00 PM EDT Start Date: 10/11/23 Status: Ordered Flovent HFA 220 mcg/inh MDI Start: 10/12/23 1:28:00 PM EDT, 2 puff, inhaled, bid Start Date: 10/12/23 Status: Ordered norethindrone 5 mg oral tablet Start: 10/09/23 1:20:00 PM EDT, 1 tablet qid taper Start Date: 10/09/23 Status: Ordered predniSONE 20 mg oral tablet Start: 10/20/23 9:18:00 AM EDT, 1 tab, PO, Daily, Disp# 7 tab, Note to Pharmacy: No red dye, Pharmacy: [id number] Start Date: 10/20/23 Stop Date: 10/27/23 Status: Ordered Vitamin D3 50 mcg (2000 intl units) oral capsule Start: 10/09/23 2:59:00 PM EDT, 1 cap, PO, Daily, Disp# 100 cap, Refills: 3, Pharmacy: [id number] Start Date: 10/09/23 Status: Ordered Mental Status 10/20/23 Barriers to Learning one year None evide nt Mandatory Health Literacy Documentation Yes Health Literacy Communication Barriers N ever Primary Language Indian Problem List Condition Confirmation Course Effective Dates Status Health St atus Informant Anemia Confirmed Active Anxiety Confirmed Active Asthma Confirmed Active At high risk for breast cancer Confirmed Active Family history of breast cancer Confirmed Active Inconclusive mammogram due to dense breasts Confirmed Active Migraine with aura Confirmed Active History of gestational diabetes Confirmed Active Diagnosis Diagnosis Type Effective Dates Health Status Clini mahesh Service Informant Bronchitis Discharge Diagnosis 10/20/23 Non-Specified Menorrhagia Discharge Diagnosis 10/20/23 Non-Specified Procedures Procedure Date Related Diagnosis Body Site Status delivery 1 Compl eted Teeth 2 Completed 12 sections, 07/07/16 and 04/12/13 [facility]om[facility] wisdom tooth removed, in her 20's Vital Signs Most recent to oldest [Reference Range]: 1 Patient Weight 82.6 kg (10/20/23 9:05 AM) Temperature [36.5-37.9 DegC] 36.7 DegC (10/20/23 9:05 AM) Blood Pressure 114/62mmHg (10/20/23 9:05 AM) Cuff Pulse Pressure 52 mmHg (10/20/23 9:05 AM) Social History Social History Type Response Smoking Status Never smoked cigaret jane Sex Female FCM Outpt Note * Thai Forbes DO, Mariana Annette: PERFORM Event Display: FCM Outpt Note Authored Date: Chief Complaint Pt has vaso motor rhinitits. Pt has asthma and allergies. Since its been rainy. She is anemicright now. History of Present Illness Presents for sick visit sx started Monday started with allergies / vasomotorrhinitis - usually when the weather changes or with rain usually better w flonaseand flovent she took some prednisone 5mg yesterday that she had at home feels like her issues are in her chest she has a history of asthma feels SOB, sore throat pt also dealing with menorrhagia, wants mirena IUD insertion (has had one in the past). Physical Exam Vitals & Measurements T:36.7C BP:114/62 SpO2:98% WT:82.6kg WT:82.600kg(Dosing) PHQ2 Data(Data Documented on:10/20/2023 09:05) Emotional health assessment NEGATIVE General: _Alert and oriented, No acute distress HEENT: _ Normocephalic, TM serous effusion b/l, mild pharyngeal erythema, moist oral mucosa _ Cardiovascular: _Normal rate, Regular rhythm, No murmur, No gallop. Respiratory: _Lungs are clear to auscultation, Respirations are non-labored, Breath sounds are equal Psych: Mood-affect congruence. Reports no SI/HI. Speech is of normal pace and content Assessment/Plan 1.Bronchitis Acute will treat with prednisone 20mg for 5 days continue supportive care if not improved early next week may consider abx atthat time 2.Menorrhagia Advised to provide us with her specialty pharmacy and we can order device for insertion Attestation Time spent: Pre-visit planning: _4 Bulb-mf-ghyb visit: _20 Post-visit (orders/documentation/coordination of care):5 Total visit time: _29 Problem List/Past Medical History Ongoing Anemia Anxiety Asthma At high risk for breast cancer Family history of breast cancer History of gestational diabetes Inconclusive mammogram due to dense breasts Migraine with aura Procedure/Surgical History TeethCesarean delivery Medications cholecalciferol(Vitamin D3 50 mcg (2000 intl units) oral capsule), 50 mcg= 1 cap, PO, Daily, 3 refills EPINEPHrine(EpiPen 2-Darek) fluticasone(Flovent HFA 220 mcg/inh MDI), 2 puff, inhaled, bid fluticasone nasal(Flonase) norethindrone(norethindrone 5 mg oral tablet) predniSONE(predniSONE 20 mg oral tablet), 20 mg= 1 tab, PO, Daily Allergies red dyethroat swelling Social History Smoking Status Never smoked cigarettes Family History Breast cancer: Paternal Aunt. Cancer of colon: PGM. Cancer of ovary: PGM. Malignant tumor of lung: PGF and PGM. Thyroid cancer: Paternal Aunt. Health Status Family Member(s) Immunizations Vaccine Date Status SARS-CoV-2 (COVID-19) mRNA-vacc - [id number] 03/11/2023 Recorded SARS-CoV-2 mRNA (Pfizer 12+) bivalent 07/22/2022 Recorded SARS-CoV-2 (COVID-19) mRNA BNT-162b2 vax 05/06/2021 Recorded SARS-CoV-2 (COVID-19) mRNA BNT-162b2 vax 07/30/2020 Recorded SARS-CoV-2 (COVID-19) mRNA BNT-162b2 vax 07/09/2020 Recorded tetanus/diphtheria/pertuss, acel (Tdap) 04/20/2012 Recorded influenza virus vaccine, H1N1 04/18/2009 Recorded Recommendations Health Maintenance Pending(in the next year) OverDue Adult Influenza Vaccine due12/02/22and every 1year Due Adult COVID-19 Vaccination due10/20/23Unknown Frequency Adult Folic Acid Supplementation due10/20/23and every 3year Adult Social Determinants of Health Screening due10/20/23Unknown Frequency Adult Tdap/Td Vaccine due10/20/23Unknown Frequency Cervical Cancer Screening due10/20/23Unknown Frequency Hepatitis C Screening due10/20/23One-time only Lipid Screening due10/20/23Unknown Frequency Pneumococcal Vaccine Adults and Adolescents with Chronic Illness due10/20/23One-time only Satisfied(in the past 1 year) Satisfied Body Mass Index on10/09/23.Satisfied by PERLA Rudolph Donna M Electronic Signature on File Electronically Reviewed/Signed by: Lisette Forbes DO Author Signature Dt/Tm:10/20/2023 10:12 AM Department of Family Medicine [facility] Patient Care team information Care Team Personnel Name: EMPERATRIZ Werner Danielle B Position: Nurse Pract - Family Med Member Role: Primary Care Provider Address: Address: [address] [place] [address], [place] [address]
--- OUTSIDE RECORDS SUMMARY | 2023-11-01 15:05 | External Medical Summary | Continuity of Care Document ---
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 Role Phone AlphonsoEbony Yadiel Primary Care Physician [phone] [id number] Date(s): 10/24/23 - 10/24/[address] [place] [id number] [facility], [address] [place] [address] [phone] Encounter Diagnosis Body mass index [BMI] 29.0-29.9, adult(Discharge Diagnosis) - 10/24/23 Bronchitis(Discharge Diagnosis) - 10/24/23 Discharge Disposition: Home or Self Care Attending Physician: MD Decker Ravishankar E Referring Physician: MD Decker Ravishankar E Allergies, Adverse Reactions, Alerts Substance Criticality Severity Reaction Reaction Severity Status red dye throat swelling Acti ve Assessment and Plan Extracted from: Title:Office Visit Note Author:MD Jeronimo, Debby Wylie Date:10/24/23 1.Bronchitis - Escalate therapy with azithromycin 5 day dose pack - Complete prednisone course - mucinex/hydration encouraged - Red flags for return reviewed f/u PRN. Time: 30mins 5 - pre-visit chart review 20 - visit, inclusive of history, exam, and discussion of assessment/plan 5 - post-visit documentation/orders/coordination of care Immunizations Given and Recorded Vaccine Date Status Refusal Reason SARS-CoV-2 (COVID-19) mRNA-vacc - [id number] 03/11/23 Recorded SARS-CoV-2 mRNA (Pfizer 12+) bivalent 07/22/22 Rec orded SARS-CoV-2 (COVID-19) mRNA BNT-162b2 vax 05/06/21 Recorded SARS-CoV-2 (COVID-19) mRNA BNT-162b2 vax 07/30/20 Recorded SARS-CoV-2 (COVID-19) mRNA BNT-162b2 vax 07/09/20 Recorded tetanus/diphtheria/pertuss, acel (Tdap) 04/20/12 R ecorded influenza virus vaccine, H1N1 04/18/09 Recorded Medications Azithromycin 5 Day Dose Pack 250 mg oral tablet Start: 10/24/23 10:07:00 AM EDT, See Instructions, Disp# 1 each, Refills: 0, dose pack as directed on label, Note to Pharmacy: Red Dye allergy, please attempt to source non-red azithromycin, Pharmacy:[id number] Start Date: 10/24/23 Status: Ordered EpiPen 2-Darek Start: 10/11/23 2:40:00 PM EDT Start Date: 10/11/23 Status: Ordered Flonase Start: 10/11/23 2:40:00 PM EDT Start Date: 10/11/23 Status: Ordered Flovent HFA 220 mcg/inh MDI Start: 10/12/23 1:28:00 PM EDT, 2 puff, inhaled, bid Start Date: 10/12/23 Status: Ordered Mirena 52 mg intrauterine device Start: 10/25/23 3:50:00 PM EDT, 1 each, intrauterine, ONCE, Disp# 1 each, [facility] Start Date: 10/25/23 Status: Ordered norethindrone 5 mg oral tablet Start: 10/09/23 1:20:00 PM EDT, 1 tablet qid taper Start Date: 10/09/23 Status: Ordered predniSONE 20 mg oral tablet Start: 10/20/23 9:18:00 AM EDT, 1 tab, PO, Daily, Disp# 7 tab, Note to Pharmacy: No red dye, Pharmacy: [id number] Start Date: 10/20/23 Stop Date: 10/27/23 Status: Ordered Vitamin D3 50 mcg (2000 intl units) oral capsule Start: 10/09/23 2:59:00 PM EDT, 1 cap, PO, Daily, Disp# 100 cap, Refills: 3, Pharmacy: [id number] Start Date: 10/09/23 Status: Ordered Mental Status 10/24/23 Barriers to Learning one year None evide nt Mandatory Health Literacy Documentation Yes Health Literacy Communication Barriers N ever Primary Language Khmer Problem List Condition Confirmation Course Effective Dates Status Health St atus Informant Anemia Confirmed Active Anxiety Confirmed Active Asthma Confirmed Active At high risk for breast cancer Confirmed Active Family history of breast cancer Confirmed Active Inconclusive mammogram due to dense breasts Confirmed Active Migraine with aura Confirmed Active History of gestational diabetes Confirmed Active Diagnosis Diagnosis Type Effective Dates Health Status Clinical Service Informant Bronchitis Discharge Diagnosis 10/24/23 Non-Specified Body mass index [BMI] 29.0-29.9, adult Discharge Diagnosis 10/24/23 Non-Specified Procedures Procedure Date Related Diagnosis Body Site Status delivery 1 Compl eted Teeth 2 Completed 12 sections, 07/07/16 and 04/12/13 [facility] Womens 21 wisdom tooth removed, in her 20's Vital Signs Most recent to oldest [Reference Range]: 1 Height 167.5 cm (10/24/23 9:58 AM) Patient Weight 82.1 kg (10/24/23 9:58 AM) Body Mass Index 29.26 kg/m2 (10/24/23 9:58 AM) Temperature [36.5-37.9 DegC] 36.7 DegC (10/24/23 9:58 AM) Heart Rate 88 bpm (10/24/23 9:58 AM) Blood Pressure 122/80mmHg (10/24/23 9:58 AM) Cuff Pulse Pressure 42 mmHg (10/24/23 9:58 AM) Social History Social History Type Response Smoking Status Never smoked cigaret jane Sex Female FCM Outpt Note * MD Jeronimo, Blanca Wylie: PERFORM Event Display: FCM Outpt Note Authored Date: Chief Complaint Was seen on Monday was started prednisone. Chest congestion not going anywhere. Bringing up green sputum. Heart beating really fast. History of Present Illness Marcy is a 38yoF here today to f/u visit with Dr. Proctor 10/19 for same at which point she was felt to have bronchitis and treated with prednisone 20mg daily x 5 days. She was advised if not improving to return for antibiotic treatment and does so today. She feels the prednisone helped some but still bringing up a lot of sputum. She's taking sudaphedand prednisone and feels jittery on it. No fevers/chills but is dealing with menorrhagia and is quite anemic right now. Hasn't had to use rescue inhaler but is using flovent chronically for her asthma. Review of Systems 03/18pt ROS reviewed/negative except as noted in HPI. Physical Exam Vitals & Measurements T:36.7C HR:88(Monitored) BP:122/80 SpO2:98% HT:167.5cm WT:82.100kg(Dosing) WT:82.1kg BMI:29.26 PHQ2 Data(Data Documented on:10/24/2023 09:54) Emotional health assessment NEGATIVE GENERAL APPEARANCE: The patient is alert, oriented and in no acute distress. VITALS: As above. HEENT: Head is normocephalic/atraumatic. CARDIOVASCULAR: +2 radialpulses. LUNGS: Respirations even and unlabored. Coarse breath sounds throughout. Coughing sporadically. EXTREMITIES: No cyanosis, clubbing or edema. NEUROLOGICAL: Grossly non-focal exam. SKIN: Warm and dry without any rash. Assessment/Plan 1.Bronchitis - Escalate therapy with azithromycin 5 day dose pack - Complete prednisone course - mucinex/hydration encouraged - Red flags for return reviewed f/u PRN. Time: 30mins 5 - pre-visit chart review 20 - visit, inclusive of history, exam, and discussion of assessment/plan 5 - post-visit documentation/orders/coordination of care Problem List/Past Medical History Ongoing Anemia Anxiety Asthma At high risk for breast cancer Family history of breast cancer History of gestational diabetes Inconclusive mammogram due to dense breasts Migraine with aura Procedure/Surgical History TeethCesarean delivery Medications azithromycin(Azithromycin 5 Day Dose Pack 250 mg oral tablet), See Instructions cholecalciferol(Vitamin D3 50 mcg (2000 intl units) [...] Vaccine Date Status SARS-CoV-2 (COVID-19) mRNA-vacc - [id number] 03/11/2023 Recorded SARS-CoV-2 mRNA (Pfizer 12+) bivalent 07/22/2022 Recorded SARS-CoV-2 (COVID-19) mRNA BNT-162b2 vax 05/06/2021 Recorded SARS-CoV-2 (COVID-19) mRNA BNT-162b2 vax 07/30/2020 Recorded SARS-CoV-2 (COVID-19) mRNA BNT-162b2 vax 07/09/2020 Recorded tetanus/diphtheria/pertuss, acel (Tdap) 04/20/2012 Recorded influenza virus vaccine, H1N1 04/18/2009 Recorded Recommendations Health Maintenance Pending(in the next year) OverDue Adult Influenza Vaccine due12/02/22and every 1year Due Adult COVID-19 Vaccination due10/24/23Unknown Frequency Adult Folic Acid Supplementation due10/24/23and every 3year Adult Social Determinants of Health Screening due10/24/23Unknown Frequency Adult Tdap/Td Vaccine due10/24/23Unknown Frequency Cervical Cancer Screening due10/24/23Unknown Frequency Hepatitis C Screening due10/24/23One-time only Lipid Screening due10/24/23Unknown Frequency Pneumococcal Vaccine Adults and Adolescents with Chronic Illness due10/24/23One-time only Satisfied(in the past 1 year) Satisfied Body Mass Index on10/24/23.Satisfied by PERLA Hernandez Angela Electronic Signature on File Electronically Reviewed/Signed by: Blanca Decker MD Author Signature Dt/Tm:10/24/2023 10:12 AM Department of Family Medicine [facility] Patient Care team information Care Team Personnel Name: EMPERATRIZ Werner Danielle B Position: Nurse Pract - Family Med Member Role: Primary Care Provider Address: Address: [address] [place] [id number]
--- OUTSIDE RECORDS SUMMARY | 2023-11-01 15:05 | External Medical Summary | Continuity of Care Document ---
Author Name Unknown Organization [facility] Theresa Malik [address] [place] [address] [place] [id number] Care Team Providers Care Sales Vendor Name Role Phone Ebony Werner Primary Care Physician [phone] [id number] Date(s): 10/09/23 - 10/09/23 [facility] [address] [place] [address] [facility] [address] [facility], [address], Entrance [place] [address] [phone] Encounter Diagnosis At high risk for breast cancer(Discharge Diagnosis) - 10/09/23 Inconclusive mammogram due to dense breasts(Discharge Diagnosis) - 10/09/23 Family history of breast cancer(Discharge Diagnosis) - 10/09/23 Discharge Disposition: Home or Self Care Attending Physician: EMPERATRIZ Jaimes Nichole D Referring Physician: MD Marilyn, Valencia Allergies, Adverse Reactions, Alerts Substance Reaction Severity Status red dye throat swelling Active Assessment and Plan Extracted from: Title:Breast Care Office Visit Note Author:EMPERATRIZ Jaimes Nichole D Date:10/09/23 1.At high risk for breast cancer 2.Inconclusive mammogram due to dense breasts 3.Family history of breast cancer Reba seen today in the [facility] for risk assessment and evaluation. She is a38 yearold female with a personal history ofbilateral breast biopsies demi paternal aunt with breast cancer at age 36. She was previously evaluated with BRCA pro MBS assessment. Today, she was reevaluated and calculatedwith a Tyrer-Cuzick 8and found to have35%lifetimerisk of developing breast cancer. We discussedthe option of preventative medications specifically tamoxifen 5 mg a day for 3 years.She is not a candidate at this timedue to Karen 5-year riskof 1.3% We discussed lifestylemodification, and literature was provided, encouraging regular exercise5 times a week for minimum of 30 minutes each time, maintaining a healthy BMI,avoidingtobacco use,limitingconsumption of alcoholto 2-3drinks a week,avoiding processed foodsand taking vitamin I0ebboyiqpnd her likelihood of developing breast cancer. Vitamin D 2000 IUs was ordered to be taken dailyand sent to her pharmacy. We discussedthe various levels of breast densityas well carlota breast density, which is Extremely densein which casemammographyislesslikely todetectan early breast cancer. The use of supplemental imaging withMRI isrecommendedin her case. We discussed the pros and cons, particularly related the likelihoodof associatedto false positiveswith MRI.She would like to proceed despitethe possibility of false positivesandwas agreeable to annual screening mammogramsfor surveillancealong with MRI. There was no evidence of disease today on mammogram or clinical exam. She should return to the [facility] Care Clinic in 6 months for MRI and in one year for mammogram and clinical exam. Medications EpiPen 2-Darek Start: 10/11/23 14:40:00 EDT Start Date: 10/11/23 Status: Ordered Flonase Start: 10/11/23 14:40:00 EDT Start Date: 10/11/23 Status: Ordered norethindrone 5 mg oral tablet Start: 10/09/23 13:20:00 EDT, 1 tablet qid taper Start Date: 10/09/23 Status: Ordered Vitamin D3 50 mcg (2000 intl units) oral capsule Start: 10/09/23 14:59:00 EDT, 1 cap, PO, Daily, Disp# 100 cap, Refills: 3, Pharmacy: [id number] Start Date: 10/09/23 Status: Ordered Mental Status 10/09/23 Barriers to Learning one year None evide nt Mandatory Health Literacy Documentation Yes Health Literacy Communication Barriers N ever Primary Language [place] Problem List Condition Confirmation Course Effective Dates Status Health [facility] Informant At high risk for breast cancer Confirmed Active Family history of breast cancer Confirmed Active Inconclusive mammogram due to dense breasts Confirmed Active Diagnosis Diagnosis Type Effective Dates Health Status Clinical Service Informant Family history of breast cancer Discharge Diagnosis 10/09/23 At high risk for breast cancer Discharge Diagnosis 10/09/23 Inconclusive mammogram due to dense breasts Discharge Diagnosis 10/09/23 Procedures Procedure Date Related Diagnosis Body Site Status delivery 1 Compl eted Teeth 2 Completed 12 sections, 07/07/16 [address] 04/12/[address] [facility] Womens 21 wisdom tooth removed, in her 20's Vital Signs Most recent to oldest [Reference Range]: 1 Height 165 cm (10/09/23 1:27 PM) Patient Weight 83.3 kg (10/09/23 1:27 PM) Body Mass Index 30.6 kg/m2 (10/09/23 1:27 PM) Temperature [36.5-37.9 DegC] 35.9 DegC *LOW* (10/09/23 1:27 PM) Heart Rate 96 bpm (10/09/23 1:27 PM) Blood Pressure 128/78mmHg (10/09/23 1:27 PM) Cuff Pulse Pressure 50 mmHg (10/09/23 1:27 PM) Social History Social History Type Response Smoking Status Never smoked cigaret jane Sex Female Breast Center Outpt Note * EMPERATRIZ Jaimes Nichole D: PERFORM, MODIFY Event Display: Breast Center Outpt Note Authored Date: [id number] Chief Complaint new high risk History of Present Illness Reba seen today inThe [facility]o be evaluatedfor breast cancerriskdue toa family history of breast cancer.She is a [age][place]89 yearoldwho [place] [facility]. She has family history of breast cancer in her maternal auntat age 36 and was calculatedon MBSto havea lifetime risk of 20.4%. She hasbeen having surveillancewith MRI, alternating with mammogramsince 2014. Shereports accessory tissue in the rightaxilla that enlarged sign ificantlywith . She was unable to have that removed at this point due to insurance coveringthe procedure.She reportsheavy periodsthat have been causing anemiafor whichshe is takingnorethindrone on top of her IUDandcurrently being managed by gynecology. She denies changes in her breast exam including any new lumps, indentations, nipple discharge or skin discoloration today Breast Density:Extremely dense Breast Imaging: Last MRI, August 2022. Screening mammogram10/09/2023, BI-RADS 1. Breast History: 08/21/15 Left breast 10:007 CFNbiopsy at [facility], pathology showingfat necrosisand focal mild chronic inflammation. 05/21/2021 Right breast 10:[address] [facility], pathologyshowingbenign breast tissue with areas of acute and chronic inflammation and necrotic inflammatory debris consistent with history of abscess. Family History: PaternalAunt Breast Cancer at 36, from the disease age 38, BRCA negative. Paternal aunt with thyroid cancerdiagnosed in her 30s. Paternal grandmother withcolorectal cancer in her 70sand ovarian and lungcancerin her80s, . Paternal grandfather with lung cancer. She is not of Ashkenazi Lutheran descent. Risk Assessment: NCI/Gail5-yearRisk Assessment score: 1.3% NCI/GailLifetime Risk Assessmentscore: 19.6% [facility] Risk Assessment Score: 35% Genetic Testing: Met with genetics, testing not performed, in 2014. Social History: She is ,has a son and daughter. 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 She is not currently workingand is qedh-cd-brqw mom. She does not smokeor drink alcohol. She is exercising 3-4 times a week. Gynecologic History: Age at Menarche:12, G3, P2, first live at age 28. Breast-fedforapproximately 72 months. No HRT or infertility. OCP x 11 years, currently has IUD. Review of Systems see HPI Physical Exam Vitals & Measurements T:35.9C HR:96(Monitored) BP:128/78 HT:165cm WT:83.300kg(Dosing) WT:83.3kg BMI:30.6 General: Alert and oriented, well nourished, no acute distress. BreastExam:Symmetric, no discrete masses, no skin discoloration, nipple discharge or palpable axillary lymphadenopathy. Large area of accessory breast tissue and rightaxillaapproximately8 x 5 cm. Musculoskeletal: Grossly normal range of motion and strength. Neurologic: Awake, alert, and oriented. Psychiatric: Cooperative, appropriate mood and affect. Diagnostic Results (10/09/2023 11:46 EDT MG. Mammo Digital Screening Bilateral) BILATERAL MAMMOGRAM FINDINGS: The following views were obtained: bilateral CC with tomosynthesis and bilateral MLO with tomosynthesis. The breasts are extremely dense, which lowers the sensitivity of mammography. No significant masses, suspicious calcifications or other abnormalities are seen. IMPRESSION: No mammographic abnormality is seen in either breast. Routine screening mammogram at age 40 is recommended. BI-RADS Category 1: NEGATIVE RISK: Based on the information provided during exam visit, the patient's lifetime risk of developing Invasive breast carcinoma as determined by the National Cancer [place] is 18.1%. This breast cancer risk assessment tool uses medical and reproductive history and the history of breast cancer among first-degree relatives (mother, sisters, daughters) to estimate lifetime breast cancer risk. This tool does not incorporate other known risks for breast cancer (prior history of LCIS; known mutations for breast cancer; family risk factors beyond first degree relatives; prior chest wall radiation; breast density etc). WORKSTATION ID: [id number] Signature Line Final Dictated by:DO Perez Alison L Dictated DT/TM:10/09/2023 11:59 Signed by:DO Perez Alison L Signed (Electronic Signature):10/09/2023 11:59 [1] Assessment/Plan 1.At high risk for breast cancer 2.Inconclusive mammogram due to dense breasts 3.Family history of breast cancer Reba seen today in the [facility] Breast Cancer Clinic for risk assessment and evaluation. She is a38 yearold female with a personal history ofbilateral breast biopsies demi paternal aunt with breast cancer at age 36. She was previously evaluated with BRCA pro MBS assessment.Today, she was reevaluated and calculatedwith a Tyrer-Cuzick 8and found to have35%lifetimerisk of developing breast cancer. We discussedthe option of preventative medications specifically tamoxifen 5 mg a day for 3 years.She is not a candidate at this timedue to Karen 5- year riskof 1.3% We discussed lifestylemodification, and literature was provided, encouraging regular exercise5 times a week for minimum of 30 minutes each time, maintaining a healthy BMI,avoidingtobacco use,limitingconsumption of alcoholto 2-3drinks a week,avoiding processed foodsand taking vitamin U1rdrpuzzksv her likelihood of developing breast cancer. Vitamin D 2000 IUs was ordered to be taken dailyand sent to her pharmacy. We discussedthe various levels of breast densityas well carlota breast density, which isExtremely densein which casemammographyislesslikely todetectan early breast cancer. The use of supplemental imaging withMRI isrecommendedin her case. We discussed the pros and cons, particularly related the likelihoodof associatedto false positiveswith MRI.She would like to proceed despitethe possibility of false positivesandwas agreeable to annual screening mammogramsfor surveillancealong with MRI. There was no evidence of disease today on mammogram or clinical exam. She should return to the [facility] Care Clinic in 6 months for MRI and in one year for mammogram and clinical exam. Problem List/Past Medical History Ongoing At high risk for breast cancer Family history of breast cancer Inconclusive mammogram due to dense breasts Procedure/Surgical History TeethCesarean delivery Medications norethindrone(norethindrone 5 mg oral tablet) Allergies red dyethroat swelling Social History Smoking Status Never smoked cigarettes Family History Breast cancer: Paternal Aunt. Cancer of colon: PGM. Cancer of ovary: PGM. Malignant tumor of lung: PGF and PGM. Thyroid cancer: Paternal Aunt. Health Status Family Member(s) Recommendations Health Maintenance Pending(in the next year) OverDue Adult Influenza Vaccine due12/02/22and every 1year Due Adult Folic Acid Supplementation due10/09/23and every 3year Satisfied(in the past 1 year) There are no satisfied recommendations within the defined date range [1]MG. Mammo Digital Screening Bilateral; DO Perez Alison L 10/09/2023 11:46 EDT Electronic Signature on File Electronically Reviewed/Signed by: EMPERATRIZ Mendoza Author Signature Dt/Tm:10/09/2023 02:57 PM Division of Oncology Surgery [facility] Patient Care team information Care Team Personnel Name: EMPERATRIZ Werner Danielle B Position: Nurse Pract - Family Med Member Role: Primary Care Provider Address: Address: [address] [place] [address], [place] [address] [place]
--- OUTSIDE RECORDS SUMMARY | 2023-11-01 15:05 | External Medical Summary | Continuity of Care Document ---
Author Name Unknown Organization [facility] [address] [place] [address] [place] [id number] Care Team Providers Care Risk Consultant Name Role Phone Ebony Werner Primary Care Physician [phone] [id number] Date[facility]s): 10/09/23 - 10/09/23 [facility] [address] [place] [address] [facility] [address], [address], Entrance [place] [address] [phone] Discharge Disposition: Home or Self Care Attending Physician: EMPERATRIZ Jaimes Nichole D Referring Physician: EMPERATRIZ Jaimes Nichole D Allergies, Adverse Reactions, Alerts Substance Reaction Severity Status red dye throat swelling Active Medications EpiPen 2-Darek Start: 10/11/23 14:40:00 EDT Start Date: 10/11/23 Status: Ordered Flonase Start: 10/11/23 14:40:00 EDT Start Date: 10/11/23 Status: Ordered norethindrone 5 mg oral tablet Start: 10/09/23 13:20:00 EDT, 1 tablet qid taper Start Date: 10/09/23 Status: Ordered Vitamin D3 50 mcg (2000 intl units) oral capsule Start: 10/09/23 14:59:00 EDT, 1 cap, PO, Daily, Disp# 100 cap, Refills: 3, Pharmacy: [id number] Start Date: 10/09/23 Status: Ordered Problem List Condition Confirmation Course Effective Dates Status Health [facility] Informant At high risk for breast cancer Confirmed Active Family history of breast cancer Confirmed Active Inconclusive mammogram due to dense breasts Confirmed Active Procedures Procedure Date Related Diagnosis Body Site Status delivery 1 Compl eted Teeth 2 Completed 12 sections, 07/07/16 and 04/12/[address] [facility] Womens 21 wisdom tooth removed, in her 20's Results Radiology Reports * Exam Date Time Procedure Performing Provider Status 10/09/23 11:46 AM MG. Mammo Digital Screening Bilateral Amelia Garza; Modified Notes: (MG. Mammo Digital Screening Bilateral) Reason For Exam: Family history of malignant neoplasm of breast Report Bilateral Screening Mammogram HISTORY: Patient is 38 years old and is seen for 3D screening, asymptomatic. Patient history: The patient has no personal history of breast cancer. Right needle biopsy in 2022 - benign and left needle biopsy in 2014 - benign. Family history: paternal aunt, breast cancer COMPARISON: The present examination has been compared to prior imaging studies performed at [facility] on 05/10/2021,05/21/2021 and 08/30/2022. BILATERAL MAMMOGRAM FINDINGS: The following views were [...] carcinoma as determined by the National Cancer [place] is 18.1%. This breast cancer risk assessment [...] wall radiation; breast density etc). WORKSTATION ID: [id number] Final Dictated by:DO Perez Alison L Dictated DT/TM:10/09/2023 11:59 Signed by:DO Perez Alison L Signed (Electronic Signature):10/09/2023 11:59 Addendum ADDENDED REPORT 10/09/2023 Addendum: Administrative addendum BI-RADS Category 1: NEGATIVE ORIGINAL REPORT Bilateral Screening Mammogram HISTORY: Patient is 38 years old and is seen for 3D screening, asymptomatic. Patient history: The patient has no personal history of breast cancer. Right needle biopsy in 2022 - benign and left needle biopsy in 2014 - benign. Family history: paternal aunt, breast cancer COMPARISON: The present examination has been compared to prior imaging studies performed at [facility] on 05/10/2021,05/21/2021 and 08/30/2022. BILATERAL MAMMOGRAM FINDINGS: The following views were [...] carcinoma as determined by the National Cancer [place] is 18.1%. This breast cancer risk assessment [...] wall radiation; breast density etc). WORKSTATION ID: [id number] Radiologist for Original Report: Janeth Perez Date \T\ Time Originally Signed: 10/09/2023 at 11:54:37 AM Final Dictated by:DO Perez Alison L Dictated DT/TM:10/09/2023 4:43 Signed by:DO Perez Alison L Signed (Electronic Signature):10/09/2023 4:43 p Social History Social History Type Response Smoking Status Never smoked cigaret jane Sex Female Breast Care H&P * Services, CPDI: PERFORM Event Display: Breast Care H&P Authored Date: [id number] Patient Care team information Care Team Personnel Name: EMPERATRIZ Werner Danielle B Position: Nurse Pract - Family Med Member Role: Primary Care Provider Address: Address: [address] [place] [id number]
--- OUTSIDE RECORDS SUMMARY | 2023-11-01 15:05 | External Medical Summary | Continuity of Care Document ---
Author Name Unknown Organization [address] Address [address] [place], [place] [id number] Care Team Providers Care Radio Time Salesperson Name Role Phone Ebony Werner Primary Care Physician [phone] Encounter [facility] [id number] Date(s): 10/11/23 - 10/11/[address] [address] [phone] Encounter Diagnosis Hemorrhoids(Discharge Diagnosis) - 10/11/23 Establishing care with new doctor, encounter for(Discharge Diagnosis) - 10/12/23 Discharge Disposition: Home or Self Care Attending Physician: EMPERATRIZ Werner Danielle B Allergies, Adverse Reactions, Alerts Substance Reaction Severity Status red dye throat swelling Active Assessment and Plan Extracted from: Title:Office Visit Note Author:EMPERATRIZ Werner Dan ielle B Date:10/11/23 1.Establishing care with n doctor, encounter for Patient is a 38-year-old female with past medical history ofinternal and external hemorrhoids, iron deficiency anemia, anxiety, asthma, gestational diabetes, migraine with aura. At high risk for breast cancer due to family history of breast cancer. Patient follows with [facility] in [place]. Most recent mammogram was 2023. -Last Pap smear was 2022with nohistory of abnormal Pap smear. -Last tetanus shot was 2017 per new patient paperwork. Will try to obtain vaccine records. -Patient wears glasses and follows regularly witheye doctorand dentist. -Patient is a never smoker and no illicit drugs. -Patient is due for lipid, hepatitis C, diabetic screening, but with current bleeding issues, will waittill after D&Cfor labs. 2.Hemorrhoids Patient with internal and externalbleeding hemorrhoids. States she felt like they were under controluntil most recentexacerbation that started 1 to 2 weeks ago. Patient previously had flex sig that showed hemorrhoids. [facility] recommendedthat she have them banded but patient opted not to due to risk of recurrence. [facility]. -Follow-up in 3 months after D&C for physical exam andlabs. Immunizations Given and Recorded Vaccine Date Status Refusal Reason SARS-CoV-2 (COVID-19) mRNA-vacc - [id number] 03/11/23 Recorded SARS-CoV-2 mRNA (Pfizer 12+) bivalent 07/22/22 Rec orded SARS-CoV-2 (COVID-19) mRNA BNT-162b2 vax 05/06/21 Recorded SARS-CoV-2 (COVID-19) mRNA BNT-162b2 vax 07/30/20 Recorded SARS-CoV-2 (COVID-19) mRNA BNT-162b2 vax 07/09/20 Recorded tetanus/diphtheria/pertuss, acel (Tdap) 04/20/12 R ecorded influenza virus vaccine, H1N1 04/18/09 Recorded Medications EpiPen 2-Darek Start: 10/11/23 14:40:00 EDT Start Date: 10/11/23 Status: Ordered Flonase Start: 10/11/23 14:40:00 EDT Start Date: 10/11/23 Status: Ordered Flovent HFA 220 mcg/inh MDI Start: 10/12/23 13:28:00 EDT, 2 puff, inhaled, bid Start Date: 10/12/23 Status: Ordered norethindrone 5 mg oral tablet Start: 10/09/23 13:20:00 EDT, 1 tablet qid taper Start Date: 10/09/23 Status: Ordered Vitamin D3 50 mcg (2000 intl units) oral capsule Start: 10/09/23 14:59:00 EDT, 1 cap, PO, Daily, Disp# 100 cap, Refills: 3, Pharmacy: [id number] Start Date: 10/09/23 Status: Ordered Mental Status 10/11/23 Barriers to Learning one year None evide nt Mandatory Health Literacy Documentation Yes Health Literacy Communication Barriers N ever Primary Language Nigerian Problem List Condition Confirmation Course Effective Dates [...] Effective Dates Health Status Clinical Service Informant Hemorrhoids Discharge Diagnosis 10/11/23 Non-Specified Establishing care with new doctor, encounter for Discharge Diagnosis 10/12/23 Procedures Procedure Date Related Diagnosis Body Site Status delivery 1 Compl eted Teeth 2 Completed 12 sections, 07/07/16 and 04/12/13 [facility] Womens 21 wisdom tooth removed, in her 20's Vital Signs Most recent to oldest [Reference Range]: 1 Patient Weight 83.40 kg (10/11/23 2:40 PM) Heart Rate 93 bpm (10/11/23 2:40 PM) Respiratory Rate 17 br/min (10/11/23 2:40 PM) Blood Pressure 128/78mmHg (10/11/23 2:40 PM) Cuff Pulse Pressure 50 mmHg (10/11/23 2:40 PM) Social History Social History Type Response Smoking Status Never smoked cigaret jane Sex Female FCM Outpt Note * EMPERATRIZ Werner Danielle B: PERFORM Event Display: FCM Outpt Note Authored Date: [id number] Chief Complaint establish care History of Present Illness Ms. Wheatley is a 38-year-old female patient [facility]. Pastmedical historypositive foranemiaand hemorrhoids. Patient is also at high risk for breast cancer based on family historyfor [facility]. Patient recently hadMirena IUDremoved by Arielle Yadav/GLOBAL IMPLEMENTATION MANAGER with subsequentabnormal uterine bleeding. Patient was put onnorethindronetaperand scheduledD&C in December. [facility] them next weekfor sooner potential D&C. Patient states she also has history ofbleeding hemorrhoids. States she [facility] have them banded. Patient opted to not have donegiven high chance of recurrenceand felt they werewell-manageduntil recent exacerbationwithin the last 1 to 2 weeks. CBC last Mondayeing monitored by[place] [facility] IMPLE[facility]ATION MANAGER. 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 Menstrual period is current. Last Pap smear [id number] no history of abnormal Paps. Review of Systems Negative unless stated in HPI. Physical Exam Vitals & Measurements HR:93(Monitored) RR:17 BP:128/78 SpO2:98% WT:83.400kg(Dosing) WT:83.40kg PHQ2 Data(Data Documented on:10/11/2023 14:40) Emotional health assessment NEGATIVE CONSTITUTIONAL: Well-developed, well nourished. No acute distress. NEUROLOGICAL: Patient alert, orientated, memory intact. Gait steady. HEENT: Head is normocephalic. Eyes- symmetrical, no erythema or discharge. LUNGS: Respirations even and unlabored, chest expansion symmetrical. Lung sounds clear in all lobes, no wheezing, crackles, or adventitious breath sounds. HEART: Rate and rhythm regular. No cardiac murmur, click, or rub noted. INTEGUMENTARY: Skin dry, warm to touch. No rash, wounds, lesions noted on visible skin. PSYCHOSOCIAL: Calm and cooperative, interacts appropriately with staff. Assessment/Plan 1.Establishing care with new doctor, encounter for Patient is a 38-year-old female with past medical history ofinternal and external hemorrhoids, iron deficiency anemia, anxiety, asthma, gestational diabetes, migraine with aura. At high risk for breast cancer due to family history of breast cancer. Patient follows with [facility] in [place]. Most recent mammogram was 2023. -Last Pap smear was 2022with nohistory of abnormal Pap smear. -Last tetanus shot was 2017 per new patient paperwork. Will try to obtain vaccine records. -Patient wears glasses and follows regularly witheye doctorand dentist. -Patient is a never smoker and no illicit drugs. -Patient is due for lipid, hepatitis C, diabetic screening, but with current bleeding issues, will waittill after D&Cfor labs. 2.Hemorrhoids Patient with internal and externalbleeding hemorrhoids. States she felt like they were under controluntil most recentexacerbation that started 1 to 2 weeks ago. Patient previously had flex sig that showed hemorrhoids. [facility] recommendedthat she have them banded but patient opted not to due to risk of recurrence. [facility]. -Follow-up in 3 months after D&C for physical exam andlabs. Problem List/Past Medical History Ongoing Anemia Anxiety [...] fluticasone nasal(Flonase) norethindrone(norethindrone 5 mg oral tablet) Allergies red dyethroat swelling Social History Smoking Status Never smoked cigarettes Family History Breast cancer: Paternal Aunt. Cancer of colon: PGM. Cancer of ovary: PGM. Malignant tumor of lung: PGF and PGM. Thyroid cancer: Paternal Aunt. Health Status Family Member(s) Immunizations Vaccine Date Status SARS-CoV-2 (COVID-19) mRNA-vacc - [id number] 03/11/2023 Recorded SARS-CoV-2 mRNA (Pfizer 12+) bivalent 07/22/2022 Recorded SARS-CoV-2 (COVID-19) mRNA BNT-162b2 vax 05/06/2021 Recorded SARS-CoV-2 (COVID-19) mRNA BNT-162b2 vax 07/30/2020 Recorded SARS-CoV-2 (COVID-19) mRNA BNT-162b2 vax 07/09/2020 Recorded tetanus/diphtheria/pertuss, acel (Tdap) 04/20/2012 Recorded influenza virus vaccine, H1N1 04/18/2009 Recorded Recommendations Health Maintenance Pending(in the next year) OverDue Adult Influenza Vaccine due12/02/22and every 1year Due Adult COVID-19 Vaccination due10/12/23Unknown Frequency Adult Folic Acid Supplementation due10/12/23and every 3year Adult Social Determinants of Health Screening due10/12/23Unknown Frequency Adult Tdap/Td Vaccine due10/12/23Unknown Frequency Cervical Cancer Screening due10/12/23Unknown Frequency Hepatitis C Screening due10/12/23One-time only Lipid Screening due10/12/23Unknown Frequency Pneumococcal Vaccine Adults and Adolescents with Chronic Illness due10/12/23One-time only Satisfied(in the past 1 year) Satisfied Body Mass Index on10/09/23.Satisfied by PERLA Rudolph Donna M Electronic Signature on File Electronically Reviewed/Signed by: EMPERATRIZ Hussein Author Signature Dt/Tm:10/12/2023 01:45 PM Family Medicine DBN Patient Care team information Care Team Personnel Name: EMPERATRIZ Werner Danielle B Position: Nurse Pract - Family Med Member Role: Primary Care Provider Address: Address: [address] [place] [address], [place] [id number]
--- NOTE | 2023-11-02 19:35 | Billing Data ---
Date of Service November 02, 2023 Coding Level of Care Code 89638 INT INP/OBS CARE
== END 2023-11-01 08:05 | disposition home or self-care (01) ==
LOC: SUATTDRO → ED 23:02 → 2W 11-01 03:19 → INTOOBSV 11-01 03:19 → SUATTDRO 11-01 03:19 → 2W 11-01 04:52